=== PATIENT | female | born 1995 | race Caucasian/White ===

== ENCOUNTER → 2016-03-24 | Outpatient (CLI) | payer OTHER | END | disposition home or self-care (01) | LOC: C.CPL 13:31 | PROVIDERS: ATTEND Obstetrics & Gynecology Maternal & Fetal Medicine | DX: Z3A.19 19 weeks gestation of pregnancy (principal); O28.3 Abnormal ultrasonic finding on antenatal screening of mother; O99.352 Diseases of the nervous system complicating pregnancy, second trimester; Z82.79 Family history of other congenital malformations, deformations and chromosomal abnormalities; Z36 Encounter for antenatal screening of mother; G40.909 Epilepsy, unspecified, not intractable, without status epilepticus; O09.899 Supervision of other high risk pregnancies, unspecified trimester; O34.219 Maternal care for unspecified type scar from previous cesarean delivery ==